=== PATIENT | male | born 1970 | race Caucasian/White ===

== ENCOUNTER 2021-04-06 06:58 | Day surgery (SDC) | payer BC ==
[~2021-04-06 06:58] MED LIST: Bacitracin Oint 1 GM U/D Packet ONE
[2021-04-06] MEDS ORDERED: Midazolam 1 MG/ML 2 ML SDV ONE ×2 (07:10→10:38)
[2021-04-06] MEDS ORDERED: Propofol 200 MG/20 ML SDV ONE ×3 (07:10→11:24)
[2021-04-06] MEDS ORDERED: fentaNYL 100 MCG/2 ML SDV ONE (07:10)
[2021-04-06] MEDS ORDERED: Acetaminophen 500 MG Tab PO ONE (07:15)
[2021-04-06] MEDS ORDERED: Dextrose 5%-Lactated Ringers 1,000 ML IV SCH (07:45)
[2021-04-06] MEDS ORDERED: ceFAZolin 2 GM in Premix Bag 1 BAG IV ONE ×2 (08:00→08:15)
[2021-04-06] MEDS: Bupivacaine 0.5% 50 ML MDV ONE ×2 (08:18→10:53)
[2021-04-06] MEDS: Lidocaine 1% with EPINEPHrine 1:100,000 50 ML MDV ONE ×2 (08:19→10:53)
--- NOTE | 2021-04-20 13:28 | OR ---
DATE OF PROCEDURE: 04/06/2021 SURGEON: Nabor Donald MD PREOPERATIVE DIAGNOSIS: Left cervical lymphadenopathy. POSTOPERATIVE DIAGNOSIS: Left cervical lymphadenopathy. OPERATIVE PROCEDURE: Left cervical lymph node biopsy ([id number]). ANESTHESIA: Local plus IV sedation. INDICATION FOR PROCEDURE: This is a 50-year-old male presenting with some lymphadenopathy involving the left lower cervical area more or less anterior to the sternocleidomastoid muscle and the supraclavicular area. He was also noted to have some axillary lymphadenopathy to rule out underlying malignancy or infectious disease. Lymph node biopsy is requested. Potential risks of the procedure including bleeding, infection, injury to the nerves in the area, possible inadequate diagnostic evaluation were all reviewed, and the patient wishes to proceed. DESCRIPTION OF PROCEDURE: The patient was taken to the operating room, placed in a supine position. After IV sedation was administered, head was turned towards the right, and the upper chest and left neck were then prepped and draped. Ultrasound was used to interrogate the area just anterior to the sternocleidomastoid muscle and the area just above the clavicle. 2 enlarged nodes were encountered in that area and the skin was marked. The area was anesthetized with 1% lidocaine and a transversely-oriented incision was made and carried down through the skin and subcutaneous tissue through the platysmal layer and 2 additional areas of cervical fascia, this entered into the fatty tissue in that area. There was a variety of small nodes present in this area suspicious for malignancy. The entire grouping of fatty tissue in that area was then excised using combination of electrocautery and ligation of small lymphatic gastric vessels. They were divided with 4-0 Vicryl ties. The specimen was then delivered from the field one of the nodes was cut partially and sent for microbiologic workup. At that point, the incision was closed with 3- 0 and 4-0 Vicryl stitch deep and 5-0 Vicryl subcuticular stitch. Surgical glue was applied, and the patient was taken to the recovery room in satisfactory condition. We will see the patient back next week with followup and review the histologic findings. Nabor Donald MD /[id number]
== END 2021-04-06 13:14 | disposition home or self-care (01) ==
LOC: JP.SDS 06:58
PROVIDERS: ATTEND Surgery
DX: R59.1 Generalized enlarged lymph nodes (principal); I10 Essential (primary) hypertension
CPT/HCPCS: 38510; 76998; 87015; 87070; 87102; 87116; 87205; 87206; 87220; 88305; 88341; 88342; 88360; A9270; J0690; J2020; J2250; J2704; J3010; J3490; J7121

== ENCOUNTER 2022-10-11 06:35 | Day surgery (SDC) | payer BC ==
[2022-10-11] MEDS ORDERED: Lactated Ringers 1,000 ML IV SCH (07:00)
[2022-10-11] MEDS ORDERED: Midazolam 1 MG/ML 2 ML SDV ONE (07:04)
[2022-10-11] MEDS ORDERED: fentaNYL 50 MCG/ML SDV ONE (07:04)
[2022-10-11] MEDS ORDERED: Propofol 200 MG/20 ML SDV ONE (07:04)
== END 2022-10-11 08:55 | disposition home or self-care (01) ==
LOC: JP.SDS 06:35
PROVIDERS: ATTEND Family Medicine
DX: Z12.11 Encounter for screening for malignant neoplasm of colon (principal); D12.0 Benign neoplasm of cecum; D12.2 Benign neoplasm of ascending colon; K64.8 Other hemorrhoids
CPT/HCPCS: 88305; J2250; J2704; J3010; J7120